=== PATIENT | female | born 1990 | race Caucasian/White ===

== ENCOUNTER 2025-01-19 12:48 | Emergency (ER) | payer OTHER ==
--- OUTSIDE RECORDS SUMMARY | 2025-01-19 12:51 | XMS REPORT | Continuity of Care Document ---
Author Name Unknown Address [address] [facility] [address] [facility] [address] [place] [address] [facility] Address [address] [place] [address] Care Team Providers Care Back Stayer Name Role Phone PCP, PATIENT DOES NOT HAVE A Primary Care Physic myron Unavailable MIO BROWN Attending Clinician Unavailable Mio Brown MD Attending Clinician GRISELDA OBRIEN Attending Clinician Unavailable Griselda Maria Attending Clinician Unknown, Attending Attending Clinician UnavailMIO Curry Admitting Clinician Unavailable Payers Payer Name Policy Type Policy Number Effective Date Expirati on Date Source Allergies, Adverse Reactions, Alerts Allergy Name Allergy Type Status Severity Reaction(s) Onset Date Inactive Date Treating Clinician Comments Source NO KNOWN ALLERGIE S Drug Class Active [facility] Social History Social Habit Start Date Stop Date Quantity Comments Source Sexual orientation U [facility] Sex assigned at 1990 00:00:00 1990 00:00:00 [facility] Smoking Status Start Date Stop Date Source Tobacco smoking consumption unknown [facility] Medications Ordered Medication Name Filled Medication Name Start Date Stop Date Current Medication? Ordering Clinician Indication Dosage Frequency Signature (SIG) Comments Components Source iopamidol (ISOVUE 370-500 mL) injection 80 mL 09-10 13:00: 00 09-10 13:15 :00 No [id number] 80mL 80 mL, Intravenou s, ONCE, 1 dose, On Thu09/11/23 at 0815, Routine [facility] NaCl 0.9% (NS) IV infusion 1,000 mL 09-10 12:30: 00 09-10 14:15 :00 No 1000mL at 999 mL/hr, Intravenou s, ONCE, 1 dose, On Thu09/11/23 at 0730, Routine [facility] sodium chloride (NS) injection 5 mL 09-10 11:19: 04 Yes 5mL 5 mL, Intravenou s, PRN, Starting on Thu09/11/23 at 0619, Until Discontinu ed, Routine, IV line flushing [facility] dicyclomine 20 mg tablet 09-10 00:00: 00 Yes [id number] 20mg Take 1 tablet by mouth every 6 (six) hours as needed for Abdominal pain. [facility] ondansetron (ZOFRAN) 4 mg tablet 09-10 00:00: 00 Yes [id number] 4mg Take 1 tablet by mouth every 8 (eight) hours as needed for Nausea and Vomiting (N/V). [facility] methylPREDN ISolone (MEDROL, LULI,) 4 mg tablets 06-14 00:00: 00 Yes [id number] follow package directions [facility] Vital Signs Vital Name Observation Time Observation Value Comments S ource Systolic blood pressure 2023-09-11 14:16:18 98 mm[Hg] [facility] Diastolic blood pressure 2023-09-11 14:16:18 66 mm[Hg] [facility] Heart rate 2023-09-11 14:16:18 85 /min [facility] Body temperature 2023-09-11 14:16:18 36.94 Rema [facility] Respiratory rate 2023-09-11 14:16:18 16 /min [facility] Oxygen saturation in Arterial blood by Pulse oximetry 2023-09-11 14:16:18 100 /min [facility] Body height 2023-09-11 11:16:00 165.1 cm [facility] Body weight 2023-09-11 11:16:00 65.772 kg [facility] BMI 2023-09-11 11:16:00 24.13 kg/m2 [facility] Systolic blood pressure 2023-06-15 17:39:00 112 mm[Hg] [facility] Diastolic blood pressure 2023-06-15 17:39:00 80 mm[Hg] [facility] Heart rate 2023-06-15 17:39:00 87 /min [facility] Body temperature 2023-06-15 17:39:00 37.5 Rema [facility] Respiratory rate 2023-06-15 17:39:00 18 /min [facility] Body height 2023-06-15 17:39:00 165.1 cm [facility] Body weight 2023-06-15 17:39:00 60.011 kg [facility] BMI 2023-06-15 17:39:00 22.02 kg/m2 [facility] Oxygen saturation in Arterial blood by Pulse oximetry 2023-06-15 17:39:00 97 /min [facility] Procedures Procedure Date / Time Performed Performing Clinicia n Source CT ABDOMEN PELVIS W CONTRAST 2023-09-11 13:02:00 Mio Brown [facility] LIPASE 2023-09-11 11:35:00 Mio Brown [facility] COMP. METABOLIC PANEL ([id number]) 2023-09-11 11:35:00 Mio Brown [facility] CBC WITH DIFF 2023-09-11 11:35:00 Mio Brown [facility] URINALYSIS 2023-09-11 11:35:00 Mio Brown [facility] POCT TEST 2023-09-11 11:20:00 Mio Brown [facility] POCT SARS-COV-2 ANTIGEN (BINAX NOW) 2023-06-15 18:09:00 Uma Frias [facility] Encounters Start Date/Time End Date/Time Encounter Type Admission Type Attending Clinicians Care Facility Care Department Encounter ID Source 2024-07-06 15:20:56 2024-07-06 15:20:56 Outpatient [facility] [id number] Edil Valles 2024-06-30 13:58:58 2024-06-30 13:58:58 Outpatient [facility] [id number] Edil Valles 2024-06-15 16:31:01 2024-06-15 16:31:01 Outpatient [facility] [id number] Edil Valles 2023-09-11 06:10:00 2023-09-11 09:21:00 [facility] [id number] 2023-09-11 06:10:00 2023-09-11 09:21:00 Emergency Mio Brown [facility] [id number] [facility] 2023-06-15 10:40:00 2023-06-15 12:24:26 Outpatient R TUNG OBRIENSaravananChrissie [facility] [id number] [facility] 2023-06-15 10:40:00 2023-06-15 12:24:26 Urgent Care Tung Obriensaravananchrissie Unknown, Attending [facility] [id number] [facility] Results Test Description Test Time Test Comments Results Result Comments Source CT ABDOMEN PELVIS W CONTRAST 2023-08-14 1 13:44:11 ORDERING PHYSICIAN: MIO BROWN. HISTORY: Abdominal pain, acute, nonlocalized ? TECHNIQUE: CT abdomen and pelvis with intravenous contrast. ?CT wasperformed according to ALARA (As Low As Reasonably Achievable). ? COMPARISON: None FINDINGS: Abdomen: Visualized Chest: Visualized portions of the lungs show no consolidation oreffusions. Liver And Biliary Tree: The liver enhances normally. Focal fat infiltrationwithin segment 4 adjacent to the falciform ligament is present. Gallbladderis normal. There is no biliary dilation. Spleen: No splenic abnormalities are identified. Kidneys: The kidneys enhance symmetrically. There is no nephrolithiasis orhydronephrosis. A subcentimeter hypodensity too small to characterize isseen within the left kidney (image 29/2). Adrenals: No adrenal masses are identified. Pancreas: No pancreatic masses are identified. Lymph Nodes: No adenopathy is identified. Aorta: No aneurysms are seen. Small Bowel: There is no free air or focal bowel obstruction. ?No hiatalhernia is present. ?The terminal ileum is normal. PELVIS: Colon: The appendix is normal. Rest of colon is normal. Bladder: The bladder wall is smooth. Reproductive Organs: The uterus and ovaries are normal. Osseous Structures: No suspicious lesions are identified. There is a trace amount of pelvic free fluid [facility] (BINAX NOW)2023-06-15 18:09:00* Test Item Value Reference Range Interpretation Comme nts POCT SARS-COV-2 ANTIGEN (enrico t code = 25999-6) Not Detected Not Detected On board controls acceptable with C Line (test code = 3574) Yes [facility] Notes Date/Time Note Provider Source 2023-09-11 09:20:53 Patient given discharge instructions on abdominal pain, diarrhea, mild dehydration. Given prescription X 2 for zofran and bentyl. Pt advised to follow up with pcp. Pt left ER ambulatory, no signs of distress. Nichole Alvarado RN [facility] - [facility] 2023-09-11 09:00:06 [facility] ED Transfer of Care Note. Off-going Physician: Dr. Brown Time of Transfer of Care: 7:45 AM Summary: Rut Young is a 32 year old female presenting with chief complaint of abdominal pain. Pending prior to disposition: Imaging Current interventions: Medications sodium chloride (NS) injection 5 mL (has no administration in time range) NaCl 0.9% (NS) IV infusion 1,000 mL (1,000 mL Intravenous New Bag 09/11/23 0634) iopamidol (ISOVUE 370-500 mL) injection 80 mL (80 mL Intravenous Given 09/11/23 0815) Results: Labs Reviewed COMP. METABOLIC PANEL ([id number]) - Abnormal; Notable for the following components: Result Value K 3.3 (*) CO2 TOTAL 21 (*) BUN 6 (*) All other components within normal limits CBC WITH DIFF - Abnormal; Notable for the following components: MCHC 35.2 (*) LYMPH x10 3 1.07 (*) EOS x10 3 <0.03 (*) All other components within normal limits URINALYSIS - Abnormal; Notable for the following components: COLOR Straw (*) KETONES 5 mg/dL (*) All other components within normal limits LIPASE - Normal POCT TEST - Normal CT ABDOMEN PELVIS W CONTRAST Final Result No acute intra-abdominal process. End of Report. Procedures: Procedures Additional Notes: ED Course as of 09/11/23 0900 ThuSeptember 11, [address] ABDOMEN PELVIS W CONTRAST Final: No acute intra-abdominal process. [AA] ED Course User Index [AA] Betty Noel MD Diagnosis/Impression as of 09/11/23 0900 Diarrhea in adult patient Abdominal pain in female Generalized abdominal pain Mild dehydration Diarrhea, unspecified type Medical Decision Making Amount and/or Complexity of Data Reviewed Labs: ordered. Radiology: ordered. Decision-making details documented in ED Course. Risk Prescription drug management. Disposition: Discharged Home Social Determinants of Health: None ED Disposition ED Disposition Disch - Home Condition Stable Comment -- T EM-EMERGENCY MEDICINE STAFF [facility] 2023-09-11 06:12:23 Pt presents to ED with c/o abd cramping and diarrhea for 5 days. Pt reports having nausea but no vomiting. Pt rates pain 5/10. LMP: began cycle Thursday. Meds: motrin @ 3am [facility] 2023-09-11 06:08:00 [facility] Emergency Department Note Patient Name: Rut Young Date of : 1990 32 year old female Treatment Room: TX6/TX6 Primary Care Physician: PATIENT DOES NOT HAVE A PCP Patient Escorted by: Self [9] Mode of Arrival: Personal means [1] EMS Treatment Prior to ED Arrival: DIAGNOSTICS TECH treatment: None Travel and Exposure Screening: Symptoms Does patient have any of these symptoms?: (not recorded) Exposure Screening Has patient had contact with someone with a communicable disease in the last month?: (not recorded) Diseases exposed to:: (not recorded) Is Patient ?: (not recorded) Exposure Date: (not recorded) Chief Complaint: Chief Complaint Patient presents with Abdominal Pain Diarrhea History of Present Illness: Rut Young is a 32 year old female who presents to the ED for evaluation of generalized abdominal pain. Has also had diarrhea. Pain is reported t be severe cramps and began 5 days ago to lower quadrants. No sick contacts. No travel hx. No recent abx use. Denies any urinary symptoms. 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 Abdominal Pain Pain location: Generalized Pain quality: stabbing Pain radiates to: Epigastric region Pain severity: Moderate Onset quality: Gradual Timing: Intermittent Progression: Waxing and waning Chronicity: New Context: not alcohol use, not awakening from sleep, not diet changes, not eating, not laxative use, not medication withdrawal, not previous surgeries, not recent illness, not recent travel, not retching, not sick contacts, not suspicious food intake and not trauma Relieved by: Nothing Worsened by: Nothing Ineffective treatments: OTC medications Associated symptoms: anorexia, diarrhea and nausea Associated symptoms: no belching, no chest pain, no chills, no constipation, no cough, no dysuria, no fatigue, no fever, no flatus, no hematemesis, no hematochezia, no hematuria, no shortness of breath and no vomiting Risk factors: no alcohol abuse, no aspirin use, not elderly, has not had multiple surgeries, no NSAID use, not obese, not and no recent hospitalization Past Medical History/Immunizations: Anxiety Depression Vitamin D Deficiency IBS Tetanus received in last 5 years: No Allergies: No Known Allergies Past Social History: Substance & Sexual Activity No substance use or sexual activity history on file. Past Surgical History: C/S 2016 Review of Systems: Review of Systems Constitutional: Negative. Negative for chills, fatigue and fever. HENT: Negative. Eyes: Negative. Respiratory: Negative. Negative for cough and shortness of breath. Breasts: Negative. Cardiovascular: Negative. Negative for chest pain. Gastrointestinal: Positive for abdominal pain, anorexia, diarrhea and nausea. Negative for constipation, flatus, hematemesis, hematochezia and vomiting. Genitourinary: Negative. Negative for dysuria and hematuria. Musculoskeletal: Negative. Negative for myalgias. Skin: Negative. Neurological: Negative. Psychiatric/Behavioral: Negative. All other systems reviewed and are negative. Endocrine: Endocrine negative Physical Exam: ED Triage Vitals [09/11/23 0616] Weight 65.8 kg (145 lb) Actual or estimated Height 1.651 m (5' 5") BP 110/64 Pulse 91 Resp 15 Temp 35.8 ?C (96.5 ?F) Temp src SpO2 98 % Measured on Room air Physical Exam Vitals and nursing note reviewed. Constitutional: General: She is not in acute distress. Appearance: Normal appearance. She is well-developed and normal weight. She is not ill-appearing or toxic-appearing. HENT: Head: Normocephalic and atraumatic. Nose: Nose normal. No congestion or rhinorrhea. Mouth/Throat: Mouth: Mucous membranes are moist. Pharynx: Oropharynx is clear. No oropharyngeal exudate or posterior oropharyngeal erythema. Eyes: General: No scleral icterus. Right eye: No discharge. Left eye: No discharge. Extraocular Movements: Extraocular movements intact. Conjunctiva/sclera: Conjunctivae normal. Pupils: Pupils are equal, round, and reactive to light. Neck: Thyroid: No thyromegaly. Cardiovascular: Rate and Rhythm: Normal rate and regular rhythm. Heart sounds: Normal heart sounds. No murmur heard. Pulmonary: Effort: Pulmonary effort is normal. No respiratory distress. Breath sounds: Normal breath sounds. No stridor. No wheezing, rhonchi or rales. Chest: Chest wall: No tenderness. Abdominal: General: Bowel sounds are normal. There is no distension. Palpations: Abdomen is soft. There is no mass. Tenderness: There is no abdominal tenderness. There is no right CVA tenderness, left CVA tenderness, guarding or rebound. Hernia: No hernia is present. Musculoskeletal: General: No swelling, tenderness, deformity or signs of injury. Normal range of motion. Cervical back: Normal range of motion and neck supple. No rigidity or tenderness. Right lower leg: No edema. Left lower leg: No edema. Lymphadenopathy: Cervical: No cervical adenopathy. Skin: General: Skin is warm and dry. Capillary Refill: Capillary refill takes less than 2 seconds. Coloration: Skin is not jaundiced or pale. Findings: No bruising, erythema, lesion or rash. Neurological: General: No focal deficit present. Mental Status: She is alert and oriented to person, place, and time. Cranial Nerves: No cranial nerve deficit. Sensory: No sensory deficit. Motor: No weakness or abnormal muscle tone. Coordination: Coordination normal. Gait: Gait normal. Deep Tendon Reflexes: Reflexes normal. Psychiatric: Behavior: Behavior normal. Thought Content: Thought content normal. Judgment: Judgment normal. Radiology: No orders to display Lab Results: Lab Results COMP. METABOLIC PANEL (76311) - Abnormal Result Value Ref Range NA 135 135 - 145 mmol/L K 3.3 (*) 3.5 - 5.0 mmol/L CL 106 98 - 108 mmol/L CO2 TOTAL 21 (*) 23 - 31 mmol/L AGAP 8 2 - 16 BUN 6 (*) 7 - 23 mg/dL GLUCOSE 109 70 - 110 mg/dL CREATININE 0.68 0.50 - 1.04 mg/dL TOTAL BILI 0.6 0.1 - 1.1 mg/dL CALCIUM 9.0 8.6 - 10.6 mg/dL T PROTEIN 7.5 6.3 - 8.2 g/dL ALBUMIN 4.3 3.5 - 5.0 g/dL ALK PHOS 69 34 - 122 U/L ALTv 17 5 - 35 U/L AST(SGOT) 19 13 - 40 U/L eGFR 120.3 mL/min/1.73m2 CBC WITH DIFF - Abnormal WBC 7.17 4.30 - 11.10 10*3/?L RBC 4.17 3.93 - 5.25 10*6/?L HGB 13.4 11.6 - 15.0 g/dL HCT 38.1 35.7 - 45.2 % MCV 91.4 80.6 - 95.5 fL MCH 32.1 25.9 - 32.8 pg MCHC 35.2 (*) 31.6 - 35.1 g/dL RDW-SD 41.0 39.0 - 49.9 fL RDW-CV 12.3 12.0 - 15.5 % PLT 267 166 - 358 10*3/?L MPV 9.6 9.5 - 12.9 fL NRBC/100 WBC 0.0 0.0 - 10.0 /100 WBCs NRBC x10 3 <0.01 10*3/?L GRAN MAT (NEUT) % 74.2 % IMM GRAN % 0.60 % LYMPH % 14.9 % MONO % 9.8 % EOS % 0.1 % BASO % 0.4 % GRAN MAT x10 3 (ANC) 5.32 1.88 - 7.09 10*3/uL IMM GRAN x10 3 0.04 0.00 - 0.06 10*3/uL LYMPH x10 3 1.07 (*) 1.32 - 3.29 10*3/uL MONO x10 3 0.70 0.33 - 0.92 10*3/uL EOS x10 3 <0.03 (*) 0.03 - 0.39 10*3/uL BASO x10 3 0.03 0.01 - 0.07 10*3/uL URINALYSIS - Abnormal APPEARANCE Clear Clear COLOR Straw (*) Yellow PH 6.0 4.8 - 8.0 SP GRAVITY 1.004 1.003 - 1.030 GLU U QUAL Normal Normal BLOOD Negative Negative KETONES 5 mg/dL (*) Negative PROTEIN Negative Negative UROBILIN Normal Normal BILIRUBIN Negative Negative NITRITE Negative Negative LEUK ADELE Negative Negative RBC/HPF 1 0 - 3 HPF WBC/HPF <1 0 - 5 HPF BACTERIA Negative Negative SQ EPITH <1 HPF LIPASE - Normal LIPASE 49 0 - 220 U/L POCT TEST - Normal POCT PREG Negative On board controls acceptable with C Line Yes POCT PREG LOT # [id number] POCT PREG TEST DATE 08/14/2024 Orders and Treatments: Orders Placed This Encounter Procedures CT ABDOMEN PELVIS W CONTRAST Complete Metabolic Panel CBC with Differential Lipase, Serum Urinalysis POCT Test Orders Placed This Encounter Medications sodium chloride (NS) injection 5 mL NaCl 0.9% (NS) IV infusion 1,000 mL dicyclomine 20 mg tablet ondansetron (ZOFRAN) 4 mg tablet iopamidol (ISOVUE 370-500 mL) injection 80 mL First Provider Eval: ED Events Date/Time Event User Comments 09/11/23611 Medical Screening Begins MIO BROWN MD -- 09/11/23611 First Provider Evaluation MIO BROWN MD -- ED COURSE ED Course as of 09/11/23 0859 ThuSeptember 11, [address] ABDOMEN PELVIS W CONTRAST Final: No acute intra-abdominal process. [AA] ED Course User Index [AA] Betty Noel MD Diagnosis/Impression as of 09/11/23 0859 Diarrhea in adult patient Abdominal pain in female Generalized abdominal pain Mild dehydration Diarrhea, unspecified type Procedures: Procedures MDM: Medical Decision Making Rut Young is a 32 year old female who presents to the ED for evaluation of abdominal pain, Diarrhea and Nausea Problems Addressed: Abdominal pain in female: acute illness or injury Details: ED evaluation and work-up as documented in chart Pt did not experience any pain during period of evaluation in the ED and defers analgesics Diarrhea, unspecified type: acute illness or injury Generalized abdominal pain: acute illness or injury Mild dehydration: acute illness or injury Details: IV Rehydration administered in the ED Amount and/or Complexity of Data Reviewed External Data Reviewed: notes. Labs: ordered. Decision-making details documented in ED Course. Radiology: ordered. Decision-making details documented in ED Course. Risk OTC drugs. Prescription drug management. Flowsheet Documentation: 8:15 AM Care turned over to Dr Noel at shift change pending CT Scan Scoring Tools: No data recorded Disposition/Condition: ED Disposition ED Disposition Disch - Home Condition Stable Comment -- Discharge Medications: Patient's Medications START taking these medications DICYCLOMINE 20 MG TABLET Take 1 tablet by mouth every 6 (six) hours as needed for Abdominal pain. ONDANSETRON (ZOFRAN) 4 MG TABLET Take 1 tablet by mouth every 8 (eight) hours as needed for Nausea and Vomiting (N/V). CONTINUE taking these medications which have NOT CHANGED METHYLPREDNISOLONE (MEDROL, LULI,) 4 MG TABLETS follow package directions START taking Modified Medications as Prescribed No medications on file STOP taking these medications No medications on file Follow-up: Electronically signed by: Mio Brown MD 09/11/23 1987 Mio Brown MD 09/11/23 0815 [facility]
--- NOTE | 2025-01-19 13:40 | EDPHYS ---
Physician Documentation [facility] Name: Rut Huitron Age: 34 yrs Sex: Female : 1990 Arrival Date: 01/19/2025 Time: 12:48 Bed 24 Private MD: ED Physician Bj Kraus HPI: 01/19 13:32 This 34 yrs old Female presents to ER via Ambulatory with complaints of Numbness - leg. cr8 13:32 Patient is a 34-year-old female with no pertinent medical history comes emergency room cr8 complaining of numbness to the right leg. States it began yesterday. Reports that the right anterior thigh that is numb and the right medial ankle. Reports that today she started having some right lower back pain and when she walks she had some pain to her knee and ankle. No other neurological deficits. She does not have any limb weakness. She reports she got concerned when she was lightheaded at work and felt that it was harder to take a breath. She described the heart to take a breath as" like when you take something really cold drink" she denies any recent trauma. She is having no dysuria hematuria. She is not having chest pain. She has been afebrile. Reports when she was she did have sciatica.. 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 - Infectious Disease History:: Denies. - Social history:: Smoking status: Patient reports the use of cigarette tobacco products, smokes one-half pack cigarettes per day. ROS: 13:32 Constitutional: as per HPI cr8 Exam: 13:32 Constitutional: This is a well developed, well nourished patient who is awake, alert, cr8 and in no acute distress. Cardiovascular: Regular rate and rhythm with a normal S1 and S2. No gallops, murmurs, or rubs. Respiratory: Lungs have equal breath sounds bilaterally, clear to auscultation. No rales, rhonchi or wheezes noted. No increased work of breathing. Skin: Warm, dry with normal turgor. Normal color with no rashes, no lesions, and no evidence of cellulitis. Neuro: Awake and alert, GCS 15, oriented to person, place, time, and situation. Cranial nerves II-XII grossly intact. Motor strength 5/5 in all extremities. Reports decreased sensation to the right anterior thigh and right medial ankle. 13:32 ECG was reviewed by the Attending Physician. 14:16 Special observations: Patient was ambulatory into the room with minimal limp/antalgia. cr8 She displayed no evidence of discoordination. Straight leg raise test was positive on the right., Vital Signs: 12:56 BP 128 / 78; Pulse 101; Resp 16; Temp 98.4; Pulse Ox 100% ; Weight 63.5 kg; Height 5 dd2 ft. 5 in. ; Pain 3/10; 14:04 BP 125 / 79; Pulse 99; Resp 18; Pulse Ox 100% on R/A; iw 12:56 Body Mass Index 23.30 (63.50 kg, 165.1 cm) dd2 12:56 Pain Scale: Adult dd2 MDM: 13:03 Medical Screening Exam initiated cr8 13:41 Data reviewed: vital signs, nurses notes. cr8 14:08 Care significantly affected by the following Social Determinants of Health: Poor access cr8 to healthcare and/or lack of insurance. Counseling: I had a detailed discussion with the patient and/or guardian regarding the historical points, exam findings, and any diagnostic results supporting the discharge/admit diagnosis, the need for outpatient follow up. 14:13 ED course: Patient coming in for numbness to the right lower leg. Considered CVA, cr8 ischemia, radiculopathy. Numbness and tingling has a distinct distribution along the anterior thigh medial calf and there is no other neurological deficits so did not suspect acute CVA/ICH. On examination the distal leg is warm has great color cap refill pulses are intact so no suspicion of ischemic limb at this time. Pain comes from right lower back and she reports it radiates down plus she has positive straight leg raise test so likely she has some form of radiculopathy or pinched nerve. She is also concerned and reported that she felt like it is harder to take a deep breath and she felt dizzy at work. Suspect anxiousness but we went ahead and did EKG to evaluate for arrhythmias, STEMI. The EKG was unremarkable for malignant arrhythmias ST elevations. Considered pulmonary embolus but she is having no chest pain tachypnea tachycardia hypoxia and her Wells criteria is low risk. I considered traumatic injury but she did had no traumatic condition. Did consider getting a CT of the head but given her presentation assessment and risk factors is unlikely to provide further details. Presentation is most consistent with radiculopathy. Will go ahead and discharge patient vies her to follow-up with PCP.. 01/19 13:18 Order name: EKG; Complete Time: 13:18 cr8 01/19 13:18 Order name: EKG - Nurse/Tech; Complete Time: 13:32 cr8 EC:32 Rate is 77 beats/min. Rhythm is regular. QRS [place] is Normal. MS interval is normal. QRS cr8 interval is normal. QT interval is normal. No Q waves. T waves are Normal. No ST changes noted. Clinical impression: Normal ECG. Interpreted by me. Administered Medications: No medications were administered Disposition: 20:19 I was immediately available on-site in the Emergency Department for consultation in the ms3 care of the patient. Disposition Summary: 01/19/25 13:40 Discharge Ordered Notes: Location: Home cr8 Condition: Stable cr8 Diagnosis - Radiculopathy, lumbosacral region cr8 - Dizziness and giddiness cr8 Followup: cr8 - With: Private Physician - When: 2 - 3 days - Reason: Recheck today's complaints, Continuance of care Followup: cr8 - With: Emergency Department - When: As needed - Reason: Trouble breathing, Worsening of condition, Continuance of care Discharge Instructions: - Discharge Summary Sheet cr8 - Lumbosacral Radiculopathy cr8 - Pinched Nerve cr8 - Dizziness, [id number] cr8 Forms: - Work release form iw - Medication Reconciliation Form cr8 - Patient Portal Instructions cr8 - Leadership Thank You Letter cr8 Signatures: Bj Kraus DO DO ms3 FABI PHAM RN RN dd2 Morris Carrera NP SPEECH AND LANGUAGE CLINICIAN cr8
--- NOTE | 2025-01-19 13:40 | ER ---
Nurse's Notes [facility] Name: Rut Huitron Age: 34 yrs Sex: Female : 1990 Arrival Date: 01/19/2025 Time: 12:48 Bed 24 Private MD: Diagnosis: Radiculopathy, lumbosacral region;Dizziness and giddiness Presentation: 01/19 12:55 Chief complaint: Patient states: RT THIGH NUMBNESS, NOW PAIN IN THE KNEE AND ANKLE, RT dd2 HIP TO RT LOWER BACK PAIN BEGINNING 2 DAYS AGO. Coronavirus screen: At this time, the client does not indicate any symptoms associated with coronavirus-19. Ebola Screen: No symptoms or risks identified at this time. Risk Assessment: Do you want to hurt yourself or someone else? Patient reports no desire to harm self or others. Onset of symptoms was January 17, 2025. 12:55 Method Of Arrival: Ambulatory dd2 12:55 Acuity: NATI 3 dd2 12:56 Initial Sepsis Screen: Does the patient meet any 2 criteria? No. Patient's initial dd2 sepsis screen is negative. Does the patient have a suspected source of infection? No. Patient's initial sepsis screen is negative. Triage Assessment: 12:56 General: Appears in no apparent distress. uncomfortable, well groomed, well nourished, dd2 Behavior is calm, cooperative, appropriate for age. Pain: Complains of pain in right low back, right hip, right knee and anterior aspect of right ankle Pain currently is 3 out of 10 on a pain scale. Quality of pain is described as throbbing. Musculoskeletal: Reports numbness in right quadriceps. 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 - Infectious Disease History:: Denies. - Social history:: Smoking status: Patient reports the use of cigarette tobacco products, smokes one-half pack cigarettes per day. Screenin:35 [facility] ED Fall Risk Assessment (Adult) History of falling in the last 3 months, iw including since admission No falls in past 3 months (0 pts) Confusion or Disorientation No (0 pts) Intoxicated or Sedated No (0 pts) Impaired Gait No (0 pts) Mobility Assist Device Used No (0 pt) Altered Elimination No (0 pt) Score/Fall Risk Level 0 - 2 = Low Risk Oriented to surroundings, Maintained a safe environment. Abuse screen: Denies threats or abuse. Nutritional screening: No deficits noted. Tuberculosis screening: No symptoms or risk factors identified. Assessment: 13:35 General: Appears in no apparent distress. Behavior is calm, cooperative, appropriate iw for age. Pain: Complains of pain in right leg Quality of pain is described as dull. Neuro: Level of Consciousness is awake, alert, obeys commands, Oriented to person, place, time, situation, Moves all extremities. Gait is steady, Speech is normal, Reports numbness in right leg. Cardiovascular: Patient's skin is warm and dry. Respiratory: Reports shortness of breath Airway is patent Respiratory effort is even, unlabored, Breath sounds are clear. GI: No signs and/or symptoms were reported involving the gastrointestinal system. Abdomen is round non-distended. : No signs and/or symptoms were reported regarding the genitourinary system. EENT: No signs and/or symptoms were reported regarding the EENT system. Derm: Skin is intact, Skin is dry, Skin is normal. Musculoskeletal: Circulation, motion, and sensation intact. Range of motion: intact in all extremities. 14:04 Reassessment: No changes from previously documented assessment. Patient and/or family iw updated on plan of care and expected duration. Pain level reassessed. Patient is alert, oriented x 3, equal unlabored respirations, skin warm/dry/pink. General: Appears in no apparent distress. Behavior is calm, cooperative, appropriate for age. Vital Signs: 12:56 BP 128 / 78; Pulse 101; Resp 16; Temp 98.4; Pulse Ox 100% ; Weight 63.5 kg; Height 5 dd2 ft. 5 in. ; Pain 3/10; 14:04 BP 125 / 79; Pulse 99; Resp 18; Pulse Ox 100% on R/A; iw 12:56 Body Mass Index 23.30 (63.50 kg, 165.1 cm) dd2 12:56 Pain Scale: Adult dd2 ED Course: 12:51 Patient arrived in ED. al6 12:55 Morris Carrera NP is PHCP. cr8 12:55 Bj Kraus DO is Attending Physician. cr8 12:56 Triage completed. dd2 12:56 Arm band placed on right wrist. dd2 13:04 Divine Moreno RN is Primary Nurse. iw 13:35 Patient has correct armband on for positive identification. Door closed. Noise iw minimized. Warm blanket given. 13:35 No provider procedures requiring assistance completed. Patient did not have IV access iw during this emergency room visit. 14:06 Provided Education on: post er care. iw Administered Medications: No medications were administered Medication: 13:35 VIS not applicable for this client. iw Outcome: 13:40 Discharge ordered by MD. cr8 14:04 Discharged to home ambulatory, iw 14:04 Condition: stable 14:04 Discharge instructions given to patient, Instructed on follow up and referral plans. Demonstrated understanding of instructions, follow-up care, 14:06 Patient left the ED. iw Signatures: Divine Moreno RN RN iw FABI PHAM RN RN dd2 Jasmin Posey al6 Morris Carrera NP ACOUSTICAL INSTALLER cr8
[2025-01-19 14:10] VITALS: TEMP 98.4; O2SAT 100
[2025-01-19 14:12] VITALS: BP 125/79
== END 2025-01-19 14:06 | disposition home or self-care (01) ==
LOC: ER 12:48
DX: M54.17 Radiculopathy, lumbosacral region (principal); R42 Dizziness and giddiness; F17.210 Nicotine dependence, cigarettes, uncomplicated
CPT/HCPCS: 93005; 99282